=== PATIENT | female | born 1945 | race Caucasian/White ===

== ENCOUNTER 2018-04-08 12:17 | Inpatient (IN) | payer OTHER ==
[~2018-04-08] VITALS: Ht 154.9 cm; Wt 104.3 kg
[~2018-04-08 12:17] MED LIST: ADVAIR 500-501 EACH INH; AMARYL1 MG PO; ANTIVERT25 MG PO; CARVEDILOL12.5 MG; COMBIVENT RESPIM4 GM INH; COUMADIN 2 MG TA2 M1 PO; COUMADIN 3 MG TA3 M1 PO; FLONASE 0.05%50 MCG NASAL; FLOVENT HFA10.6 GM IH; IBUPROFEN 200200 M1 PO; LASIX 40 MG TAB40 M2 PO; LISINOPRIL20 MG PO; PACERONE 200 M200 M1 PO; PLAVIX 75 MG TA75 M1 PO; PRAVACHOL 20 MG20 M1 PO; PROAIR HFA8.5 GM INH; TOPROL XL25 MG PO
[2018-04-08 12:22] VITALS: BP 150/74
[2018-04-08 13:03] LABS: ABSOLUTE NEUTROPHILS 8.3 thou/uL (1.4-8.2); BASOPHILS 1.1 % (0.0-2.0); EOSINOPHILS 0.8 % (0.0-3.0); HEMATOCRIT 46.6 % (37.0-47.0); HEMOGLOBIN 15.6 gm/dL (12.0-15.0); LYMPHOCYTES 16.2 % (24.0-44.0); MCH 29.9 pg (26.0-34.0); MCHC 33.5 g/dL (28.0-37.0); MCV 89.3 fL (80.0-100.0); MONOCYTES 5.2 % (1.0-8.0); PLATELET COUNT 196 thou/uL (150-400); POLYS 76.7 % (36.0-66.0); RBC 5.22 mil/uL (4.20-5.00); RDW 14.5 % (10.5-14.5); WBC 10.8 thou/uL (4.0-11.0)
[2018-04-08 13:11] LABS: ANION GAP 8 mmol/L (7-16); BUN 18 mg/dL (7-18); CALCIUM 9.5 mg/dL (8.5-10.1); CHLORIDE 100 mmol/L (98-107); CO2 30 mmol/L (21-32); CREATININE 0.9 mg/dL (0.6-1.0); GLUCOSE 310 mg/dL (74-106); POTASSIUM 4.1 mmol/L (3.5-5.1); SODIUM 138 mmol/L (136-145)
[2018-04-08 13:21] LABS: TROPONIN-I <0.06 ng/mL (<0.06)
[2018-04-08 14:42] VITALS: BP 132/84
--- NOTE | 2018-04-08 14:54 | NUR ---
ECHO AT BEDSIDE
[2018-04-08 15:00] VITALS: BP 132/84
[2018-04-08 15:48] VITALS: BP 130/82
--- NOTE | 2018-04-08 15:52 | 2DMMODE ---
[facility] [place] [address] 2 D/M-MODE ECHOCARDIOGRAM Name: SOLO SOLIS Room #: 354-P ADM IN ..#: [id number] Admission: 04/08/18 Attend Phys: Larisa Ma Discharge: Date of : 49 Date of Service: 04/08/18 1552 Report #: [id number] THIS REPORT FOR: //name// APPROVED REPORT Study performed: 04/08/2018 15:01:33 EXAM: Comprehensive 2D, Doppler, and color-flow Echocardiogram Patient Location: ER Status: routine BSA: 2.00 HR: 76 bpm BP: 132/84 mmHg Rhythm: Atrial Fibrillation Other Information Study Quality: Adequate Indications CHF, short of breath. Hx: CHF, Afib, COPD, HTN, DM. 2D Dimensions RVDd: 37.11 mm IVSd: 12.50 (7-11mm) LVOT Diam: 21.29 (18-24mm) LVDd: 45.93 mm PWd: 13.17 (7-11mm) Ascending Ao: 27.24 (22-36mm) LVDs: 28.56 (25-40mm) Aortic Root: 34.20 mm Volumes Left Atrial Volume (Systole) Single Plane 4CH: 74.94 mL Single Plane 2CH: 63.66 mL LA ESV Index: 36.00 mL/m2 Aortic Valve AoV Peak Job.: 3.66 m/s AO Peak Gr.: 54.02 mmHg LVOT Max P.55 mmHg AO Mean Gr.: 34.01 mmHg AO V2 Mean: 2.79 m/s LVOT Max V: 0.94 m/s AO V2 VTI: 87.44 cm CARLOS Vmax: 0.91 cm2 Mitral Valve MV Decel. Time: 217.67 ms [facility] [place] [address] 2 D/M-MODE ECHOCARDIOGRAM Name: IRMASOLO J Room #: 354-P [facility] [place] M.R.#: [id number] Admission: 04/08/18 Attend Phys: Larisa Ma Discharge: Date of : 49 Date of Service: 04/08/18 1552 Report #: [id number] E Max Job.: 1.67 m/s Pulmonary Valve PV Peak Job.: 1.30 m/s PV Peak Gr.: 6.76 mmHg Tricuspid Valve TR Peak Job.: 3.35 m/s RAP Estimate: 10.00 mmHg TR Peak Gr.: 45.06 mmHg PA Pressure: 55.00 mmHg Left Ventricle The left ventricle is normal size. There is normal LV segmental wall motion. Mild concentric left ventricular hypertrophy. Left ventricular systolic function is normal. LVEF is 60-65%. This study is not technically sufficient to allow evaluation of the LV diastolic function due to atrial fibrillation. Right Ventricle The right ventricle is normal size. The right ventricular systolic function is normal. Atria Left atrium is mildly dilated. Right atrium is mildly dilated. Aortic Valve Aortic valve is heavily calcified. Trace aortic regurgitation. There is severe valvular aortic stenosis. Calculated aortic valve area is 0.9 cm2 with maximum pressure gradient of 54 mmHg and mean pressure gradient of 34 mmHg. Mitral Valve Mitral valve leaflets are thickened. Moderate mitral annular calcification. Mild to moderate mitral regurgitation. No evidence of mitral valve stenosis. Tricuspid Valve The tricuspid valve is normal in structure. Moderate tricuspid regurgitation. Estimated PAP is 55-60mmHg. Pulmonic Valve The pulmonary valve is normal in structure. Trace pulmonic regurgitation. Great Vessels The aortic root is normal in size. The ascending aorta is normal in [address] [address] 2 D/M-MODE ECHOCARDIOGRAM Name: SOLO SOLIS Room #: 354-P [facility] [place] ..#: [id number] Admission: 04/08/18 Attend Phys: Larisa Ma Discharge: Date of : 49 Date of Service: 04/08/18 1552 Report #: [id number] size. IVC is normal in size and collapses <50% with inspiration. Pericardium There is no pericardial effusion. <Conclusion> The left ventricle is normal size. LVEF is 60-65%. Left atrium is mildly dilated. Right atrium is mildly dilated. Aortic valve is heavily calcified. Trace aortic regurgitation. There is severe valvular aortic stenosis. Calculated aortic valve area is 0.9 cm2 with maximum pressure gradient of 54 mmHg and mean pressure gradient of 34 mmHg. Mitral valve leaflets are thickened. Moderate mitral annular calcification. Mild to moderate mitral regurgitation. The tricuspid valve is normal in structure. Moderate tricuspid regurgitation. Estimated PAP is 55-60mmHg. The pulmonary valve is normal in structure. Trace pulmonic regurgitation. There is no pericardial effusion. <ELECTRONICALLY SIGNED> By: Emigdio Rosas MD 04/08/18 [phone] Emigdio Rosas MD /INF
[2018-04-08] MEDS ORDERED: LISINOPRIL40 MG PO (16:13)
[2018-04-08] MEDS ORDERED: TOPROL XL25 MG PO (16:15)
[2018-04-08] MEDS ORDERED: REQUIP1 MG PO (16:17)
[2018-04-08] MEDS ORDERED: CARDIZEM CD240 MG PO (16:18)
--- NOTE | 2018-04-08 17:51 | NUR ---
ASSUMED PATIENT CARE FROM ED. A&OX4. NO COMPLAINTS OF PAIN. DURING ADMIT PATIENT STATED THAT THEY HAVE NEVER BEEN DIAGNOSED WITH CHF OR COPD. PATIENT ON MULTIPLE HEART MEDICATIONS AND ON INHALERS AT HOME. PATIENT DOES NOT SEE A FRONT OFFICE SPEC. PRIMARY CARE IS IN [facility] AND SIGNAL TESTER IS DR. HOLDER. THIS NURSE WENT OVER HOME MEDICATIONS WITH PATIENT AND NOTIFIED HOSPITALIST THAT SOME MEDICATIONS WERE DIFFERENT THAN THE MEDS STARTED. PATIENT IS UP ADLIB IN ROOM AND IS ON RA. DR. ESPARZA TO START BREATHING TREATMENTS AND ANTIBIOTICS.
[2018-04-08 19:36] VITALS: BP 145/63
[2018-04-08] MEDS ORDERED: LIPITOR 20 MG T20 M1 PO (20:39)
[2018-04-08] MEDS ORDERED: KLOR-CON 1010 MEQ PO (20:40)
[2018-04-08] MEDS ORDERED: NOVOLOG100 UNIT/1 SUBQ (20:42)
[2018-04-09 01:09] LABS: GLYCOHEMOGLOBIN (HGB A1C) 9.5 % (4.8-5.6)
--- NOTE | 2018-04-09 02:36 | NUR ---
PATIENT IS PROGRESSING IN HER CARE PLAN. VITAL SIGNS STABLE WITH PATIENT HAVING NO COMPLAINTS OF PAIN OR NAUSEA. PATIENT ROUTINELY CHECKED FOR CHEST PAIN TO NO AVAIL. PATIENT IS ORIENTED AND ABLE TO CALL APPROPRIATELY FOR NEEDS AND PARTICIPATE IN CARE. NURSE HAS SPOKEN TO PATIENT ABOUT THE NEED TO QUIT SMOKING BUT PATIENT IS ADAMANT THAT SHE DOES NOT SMOKE. PATIENTS SON CAME TO NURSING STATION TO INFORM NURSE THAT PATIENT IS A PERSISTENT "HALF A PACK A DAY" SMOKER. PATIENT PUT ON 2 LITERS NASAL CANNULA OVERNIGHT DUE TO OXYGEN SATS IN LOW 90'S. NURSE COMPLETED MED REC AND INITIATED PATIENTS HOME DRUGS WITH HELP OF MANAGER AREA AND PHARMACIST. UP AD KASIE INCIDENT FREE, PATIENT IS STRONG AND APPEARS BALANCED WITH STUDY GAIT. CONTINUE PLAN OF CARE.
[2018-04-09 04:18] VITALS: BP 131/68
[2018-04-09 05:01] LABS: ALBUMIN 3.4 g/dL (3.4-5.0); ANION GAP 11 mmol/L (7-16); BUN 23 mg/dL (7-18); CALCIUM 9.2 mg/dL (8.5-10.1); CHLORIDE 98 mmol/L (98-107); CO2 27 mmol/L (21-32); GLUCOSE 399 mg/dL (74-106); PHOSPHORUS 3.9 mg/dL (2.5-4.9); POTASSIUM 4.3 mmol/L (3.5-5.1); SODIUM 136 mmol/L (136-145); TROPONIN-I <0.06 ng/mL (<0.06)
[2018-04-09 07:32] VITALS: BP 128/65
--- NOTE | 2018-04-09 10:06 | NUR ---
ASSESSMENT: CM REVIEWED CHART AND MET WITH PATIENT AT THE BEDSIDE. PT IS ALERT AND ORIENTED X4. PT WAS ADMITTED WITH COPD EXACERBATION. PT REPORTS SHE LIVES IN A HOUSE WITH HER . PT REPORTS HAVING A RAMP INTO THE HOME AND HAS NO STEPS SHE USES ONCE INSIDE. PT STATES SHE NORMALLY AMBULATES INDEPENDENTLY FOR SHORT DISTANCES BUT IF SHE GOES OUTSIDE THE HOME SHE TAKES HER ELECTRIC SCOOTER WITH HER FOR LONG DISTANCES. PT REPORTS THAT SHE HAS A GRAB BAR IN THE SHOWER AND A BUILT IN BENCH. PT IS INDEPENDENT WITH ADLS. PT DENIES HAVING HH IN THE PAST OR BEING TO A SNF/REHAB. CM DISCUSSED ROLE. PT DOES NOT ANTICIPATE HAVING ANY NEEDS PRIOR TO DISCHARGE. CM WILL CONTINUE TO FOLLOW TO ASSIST NEEDED.
--- NOTE | 2018-04-09 15:11 | EKG ---
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 : 1945 Requested By: Dhiraj Mendiola Order Number: [id number] MD: Vic Chong Measurements Intervals [place] Rate: 91 P: MS: QRS: 6 QRSD: 95 T: 82 QT: 383 QTc: 472 Interpretive Statements Atrial fibrillation Anterior infarct, old Nonspecific T abnormalities, lateral leads Compared to ECG 11/13/2013 09:17:10 Myocardial infarct finding now present T-wave abnormality now present Poor R-wave progression no longer present Electronically Signed On 04-09-2018 15:10:50 ALLOY WEIGHER by Vic Chong [email or web address] <ELECTRONICALLY SIGNED> By: Vic Chong MD 04/09/18 1510 1228 1228 Vic Chong MD /EPI
--- NOTE | 2018-04-09 15:14 | NUR ---
ASSUMED PATIENT CARE AT 0715. A&OX4, FORGETFUL. CARDIOVASCULAR NURSE DISCUSSED CHF WITH PATIENT AND SPOUSE. DR. HOLDER ROUNDED ON PATIENT IN THE MORNING. PATIENT WANTING TO DC HOME TOMORROW. PULMONARY CLEARED PATIENT FOR DC PLANNING. ON RA. UP ADLIB. ACCURATE I&O'S. WORKING TOWARD DC GOALS. MOST LIKELY DC TOMORROW.
[2018-04-09 16:18] VITALS: BP 128/52
[2018-04-09 20:00] VITALS: BP 117/58
[2018-04-10 04:00] VITALS: BP 114/74
--- NOTE | 2018-04-10 04:53 | NUR ---
PATIENT IS PROGRESSING SLOWLY IN HER CARE PLAN. VITAL SIGNS STABLE WITH PATIENT HAVING NO COMPLAINTS OF PAIN (CHEST OTHERWISE) OR NAUSEA. PATIENT FULLY ORIENTED AND ABLE TO CALL APPROPRIATELY FOR NEEDS. OXYGEN SATURATION WAS NOTED IN LOW 90'S EARLY IN SHIFT AND PATIENT PLACED ON ONE UNIT NASAL CANNULA. PATIENT EDUCATED ON DANGERS OF SMOKING AND HER DIAGNOSIS OF COPD. UP AD KASIE THROUGHOUT SHIFT INCIDENT FREE PATIENT IS STABLE AND BALANCED WHEN AMBULATING. BLOOD SUGAR BETTER MANAGED THAN PREVIOUS SHIFT LAST NIGHT. PATIENT IS ANXIOUS FOR DISCHARGE TODAY. CONTINUE PLAN OF CARE.
[2018-04-10 08:00] VITALS: BP 139/87
[2018-04-10] MEDS ORDERED: DOXYCYCLINE 10100 MG PO (09:22)
[2018-04-10] MEDS ORDERED: XARELTO20 MG PO (09:23)
[2018-04-10] MEDS ORDERED: PREDNISONE 20 M20 M1 PO (09:24)
[2018-04-10 10:13] VITALS: BP 139/87
--- NOTE | 2018-04-10 11:07 | NUR ---
ASSUMED PATIENT CARE AT 0700. A/O X4. SOB WITH EXERTION. PATIENT ON RA O2 SAT 91-93%. SLOWLY TOWARDS POC GOALS. DC TO HOME NOW.
--- NOTE | 2018-04-10 13:54 | HC ---
[facility] [place] [address] CONSULTATION Name: SOLO SOLIS Room #: 354-P [facility] IN ..#: [id number] Admission: 04/08/18 Attend Phys: Larisa Leger Discharge: 04/10/18 Date of : 49 Report #: [id number] THIS REPORT FOR: //name// CC: Quinten Bonilla Larisa Leger DATE OF SERVICE: 04/08/2018 PULMONARY CONSULTATION REFERRING PHYSICIAN: Larisa Leger M.D. REASON FOR REFERRAL: COPD, dyspnea. HISTORY OF PRESENT ILLNESS: The patient is a 73-year-old white female who presented to the Emergency Room with dyspnea. A Pulmonary consultation was requested. The patient has smoked most of her life. She has a history of COPD. She states that she was in her usual state of health until that morning prior to presentation, when she started to experience fatigue, increasing dyspnea. She also noted left-sided arm pain. She has been sick about a month ago. She was felt to have flu-like symptoms. She was given prednisone and Levaquin at that time. Currently, she feels better. Dyspnea has improved. She denies any chest pain, productive cough or hemoptysis. PAST MEDICAL HISTORY: Notable for COPD, tobacco abuse, smoking less than half a pack a day over the last 56 years, atrial fibrillation, carotid artery disease, coronary artery disease, hypertension, chronic low back pain, osteoarthritis and peripheral artery disease. PAST SURGICAL HISTORY: Notable for cholecystectomy and prior lower extremity surgery. ALLERGIES: None to medications. HOME MEDICATIONS: Include Proventil HFA, Lipitor, Cardizem, Lasix, Lantus, Prinivil, Toprol-XL, Xarelto and Requip. FAMILY HISTORY: Notable for heart disease in the mother, who also has cancer. Father also had heart disease with myocardial infarction. SOCIAL HISTORY: She is . Smokes about half a pack a day over the last [facility] [address] [place] [address] CONSULTATION Name: SOLO SOLIS Room #: 354-P [facility] IN [facility].#: [id number] Admission: 04/08/18 Attend Phys: Larisa Leger Discharge: 04/10/18 Date of : 49 Report #: [id number] 58 years. She denies any tobacco use. REVIEW OF SYSTEMS: As mentioned above; otherwise, 10-point system review is negative. PHYSICAL EXAMINATION: GENERAL: On examination, she is awake, alert, in no apparent distress. VITAL SIGNS: Temperature is 98 degrees Fahrenheit, pulse is 80, respiratory rate is 20, blood pressure 130/80 mmHg and saturation 92%. HEENT: Normocephalic, atraumatic. NECK: Supple, without lymphadenopathy or thyromegaly. CHEST: Breath sounds are clear bilaterally, without any rales or wheezes. CARDIOVASCULAR: Normal S1, S2. There is no murmur or gallop. There is no JVD. There is no carotid bruit. Pulses are 2+/4+ bilaterally. ABDOMEN: Moderately obese. No organomegaly or masses felt. GENITOURINARY: Deferred. RECTAL: Deferred. EXTREMITIES: There is no edema, cyanosis or clubbing. LABORATORY DATA: Chest x-ray shows mild vascular congestion. No obvious infiltrates. Influenza A and B is negative. Echocardiogram shows pulmonary pressure measuring 55 mmHg, moderate mitral regurgitation and severe aortic stenosis. Troponin is normal. Electrolytes are normal. WBC is 10,800, hemoglobin 15.6 and platelets are normal. Albumin 3.4. IMPRESSION: 1. Dyspnea in this 73-year-old white female is probably due to chronic obstructive pulmonary disease and atrial fibrillation. 2. Chronic obstructive pulmonary disease, severity unknown, ongoing tobacco use, probable mild exacerbation. 3. Obesity. The patient has risk factors for sleep disordered breathing. Recommend sleep apnea evaluation. 4. Atrial fibrillation with rapid ventricular response, on chronic anticoagulation. 5. Hypertension. 6. Severe aortic stenosis with moderate mitral regurgitation. 7. Pulmonary hypertension due to valvular heart disease. RECOMMENDATIONS: We would initiate bronchodilators, corticosteroids and broad-spectrum antibiotics. I strongly recommended smoke cessation. DVT and GI prophylaxis will be addressed. As an outpatient, we would recommend outpatient followup for possible sleep disordered breathing along with COPD. I also strongly [place] [address] CONSULTATION Name: SOLO SOLIS Room #: 354-P DIS IN M.R.#: [id number] Admission: 04/08/18 Attend Phys: Larisa Leger Discharge: 04/10/18 Date of : 49 Report #: [id number] Thank you for this consultation. <ELECTRONICALLY SIGNED> By: Edenilson Kelly MD 04/10/18 1354 1528 1239 Edenilson Kelly MD /nt
== END 2018-04-10 11:09 | disposition home or self-care (01) | DRG 291 ==
LOC: ER 12:17 → EROBS 14:34 → 3W 14:34
PROVIDERS: Physician Assistant; ADMIT Hospitalist
DX: I11.0 Hypertensive heart disease with heart failure (principal); J96.01 Acute respiratory failure with hypoxia; J44.1 Chronic obstructive pulmonary disease with (acute) exacerbation; I38 Endocarditis, valve unspecified; Z68.41 Body mass index [BMI] 40.0-44.9, adult; I50.33 Acute on chronic diastolic (congestive) heart failure; E66.9 Obesity, unspecified; E78.5 Hyperlipidemia, unspecified; I25.10 Atherosclerotic heart disease of native coronary artery without angina pectoris; G89.29 Other chronic pain; M54.5 Low back pain; E11.51 Type 2 diabetes mellitus with diabetic peripheral angiopathy without gangrene; I35.0 Nonrheumatic aortic (valve) stenosis; I27.20 Pulmonary hypertension, unspecified; I34.0 Nonrheumatic mitral (valve) insufficiency; F17.210 Nicotine dependence, cigarettes, uncomplicated; I48.2 Chronic atrial fibrillation; E78.00 Pure hypercholesterolemia, unspecified; M19.90 Unspecified osteoarthritis, unspecified site; Z79.82 Long term (current) use of aspirin; Z90.49 Acquired absence of other specified parts of digestive tract; Z82.49 Family history of ischemic heart disease and other diseases of the circulatory system; Z79.899 Other long term (current) drug therapy
CPT/HCPCS: 10879

== ENCOUNTER → 2019-07-06 | Outpatient (CLI) | payer OTHER ==
[~2019-07-06] MED LIST changes: +CARDIZEM CD240 MG PO; +DOXYCYCLINE 10100 MG PO; +KLOR-CON 1010 MEQ PO; +LIPITOR 20 MG T20 M1 PO; +LISINOPRIL40 MG PO; +NOVOLOG100 UNIT/1 SUBQ; +PREDNISONE 20 M20 M1 PO; +REQUIP1 MG PO; +XARELTO20 MG PO
== END ==
LOC: SJCVCIMAG 13:01
DX: I08.3 Combined rheumatic disorders of mitral, aortic and tricuspid valves (principal); I11.0 Hypertensive heart disease with heart failure; I50.42 Chronic combined systolic (congestive) and diastolic (congestive) heart failure; E78.00 Pure hypercholesterolemia, unspecified; R06.02 Shortness of breath; I73.9 Peripheral vascular disease, unspecified; E08.9 Diabetes mellitus due to underlying condition without complications; J44.9 Chronic obstructive pulmonary disease, unspecified; D68.59 Other primary thrombophilia

== ENCOUNTER 2019-08-02 06:34 | Inpatient (IN) | payer OTHER ==
[2019-08-02] VITALS (15 sets, daily range): BP systolic 101–135; BP diastolic 63–87
[~2019-08-02] VITALS: Ht 157.5 cm; Wt 114.8 kg
--- NOTE | ~2019-08-02 | H ---
[facility] [place] [address] HISTORY AND PHYSICAL Name: SOLO SOLIS Room #: 212-P [facility] Celestina Siegel#: [id number] Admission: 08/02/19 Attend Phys: Quinten Bonilla MD, Discharge: Date of : 49 Report #: [id number] THIS REPORT FOR: cc: NO FAMILY PHYSICIAN or PCP NO FAMILY PHYSICIAN or PCP ~ CC: Quinten Bonilla NO PCP DATE OF SERVICE: 08/02/2019 HISTORY OF PRESENT ILLNESS: The patient is a 74-year-old female who was going to be electively looked at for coronary disease and her critical aortic valve stenosis. She has had some significant demise and progressive dyspnea, shortness of breath, now essentially not able to get around much except for a wheelchair. This has been relatively acute on subacute or at least a subacute demise. Taken to the catheterization lab after LISBETH to evaluate this valve for right and left heart catheterization. Significant volume overload here with a PA pressure of 70/30 and a wedge pressure of 30. She has been on p.o. Demadex with some marginal results prior to this. I have initiated IV Lasix. She has not had any syncope or presyncope, but a definite and marked change in exercise tolerance. Some orthopnea and PND are also noted. No chest pain. The cardiac catheterization revealed [id number] 3-vessel disease and a pullback across the valve, which was surprisingly crossed and a 40-45 mm range gradient across that valve. Dr. Minaya who did the LISBETH says significant calcification and a very tight aortic valve. MEDICATIONS: Her home medications are metoprolol 50; Xarelto, which has been held for 48 hours for the permanent AFib, torsemide 20, potassium 20 and Requip 1 mg 3 times a day. PAST MEDICAL HISTORY: Positive for coronary artery disease, aortic valve stenosis, permanent atrial fibrillation, hypercholesterolemia, some progressive dyspnea, shortness of breath, COPD, long history of tobacco use. SOCIAL HISTORY: She is , retired. They live in [place], [place]. She still smokes a pack a day. Moderate caffeine. No significant alcohol. ALLERGIES: No known drug allergies. FAMILY HISTORY: There is no history of premature coronary disease or valve disorder in her family. The mother did have a pacemaker and father had bypass surgery. REVIEW OF SYSTEMS: Negative except for stated above with progressive dyspnea, shortness of breath, multifactorial, but predominantly worsened due to this [facility] [address] [place] [address] HISTORY AND PHYSICAL Name: SOLO SOLIS Room #: 212-P [facility] Celestina Siegel#: [id number] Admission: 08/02/19 Attend Phys: Quinten Bonilla MD, Discharge: Date of : 49 Report #: [id number]. PHYSICAL EXAMINATION: VITAL SIGNS: Blood pressure is 132/74, pulse is 90s and irregularly irregular. GENERAL: She is mildly dyspneic and shortness of breath. HEENT: Eyes reveal xanthelasmas. Pharynx is clear. NECK: Slight diminished upstrokes are noted. There is a trace of JVD noted at 45 degrees. LUNGS: Clear with a few fine basilar crackles and prolonged expiratory phase. CARDIOVASCULAR: Distant heart tones, irregularly irregular, S1, diminished second heart sound harsh systolic ejection murmur, predominantly upper right sternal border radiating to the base of the neck. ABDOMEN: Obese, nontender. EXTREMITIES: Reveal trace to 1+ edema. Distal pulses were intact. NEUROLOGIC: Nonfocal. SKIN: Warm and dry, some mild venous stasis changes. MUSCULOSKELETAL: Generalized arthritic changes. ASSESSMENT: 1. Critical aortic valve stenosis with significant volume overload. 2. Exacerbation of heart failure with significant pulmonary pressure elevation secondary to aortic stenosis. 3. Permanent atrial fibrillation. 4. Hypertension. 5. Hypercholesterolemia. 6. Chronic obstructive pulmonary disease, continued tobacco abuse. RECOMMENDATIONS AND PLAN: We will admit for some aggressive diuresis here monitoring. She has had somewhat of demise here recently. We will have for Dr. Terrazas consult for possible surgical aortic valve replacement versus TAVR. Certainly not occur on this hospitalization, but would want to get her tuned up per se, get this fluid overload, get her significantly diuresed and clinically see how she responds. Although, definitely valve replacement is in her near future. This has been discussed with the patient and her . We will proceed to the CCU for admission and diuresis. PRIMARY CARE PROVIDER: Angelita Higgins, Primary Medicine, [place]. Thank you for asking me to assist in the care of this patient. By: [id number] /nt
[2019-08-02] MEDS ORDERED: DILTIAZEM 24HR300 M2 PO (07:20)
[2019-08-02] MEDS ORDERED: LANTUS SUBQ (07:21)
[2019-08-02] MEDS ORDERED: NOVOLOG100 UNIT/1 SUBQ (07:22)
[2019-08-02 07:23] LABS: HEMATOCRIT 44.5 % (37.0-47.0); HEMOGLOBIN 14.7 gm/dL (12.0-15.0); MCH 29.2 pg (26.0-34.0); MCHC 33.1 g/dL (28.0-37.0); MCV 88.2 fL (80.0-100.0); RBC 5.05 mil/uL (4.20-5.00); RDW 15.5 % (10.5-14.5); WBC 11.5 thou/uL (4.0-11.0)
[2019-08-02] MEDS ORDERED: SYMBICORT160 MCG/4. INH (07:23)
[2019-08-02] MEDS ORDERED: TOPROL XL50 MG PO (07:24)
[2019-08-02] MEDS ORDERED: KLOR-CON M2020 MEQ PO (07:25)
[2019-08-02] MEDS ORDERED: TORSEMIDE20 MG PO (07:26)
[2019-08-02] MEDS ORDERED: NITROSTAT0.4 M1 SUBLING (07:30)
[2019-08-02 07:31] LABS: CREATININE 0.9 mg/dL (0.6-1.0); POTASSIUM 3.8 mmol/L (3.5-5.1)
--- NOTE | 2019-08-02 08:39 | EKG ---
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: [facility] : 1945 Requested By: Quinten Bonilla Order Number: [id number] MD: Titi Minaya Measurements Intervals [place] Rate: 86 P: CA: QRS: -7 QRSD: 98 T: 58 QT: 369 QTc: 442 Interpretive Statements Atrial fibrillation Probable anteroseptal infarct, old Compared to ECG 04/08/2018 12:28:36 No significant change was found Electronically Signed On 08-02-2019 8:37:47 CDT by Titi Minaya [email or web address] <ELECTRONICALLY SIGNED> By: Titi Minaya MD, [facility] 08/02/19 0837 1 1 Titi Minaya MD, [facility] /EPI
--- NOTE | 2019-08-02 08:57 | TEE ---
[facility] [place] [address] TRANSESOPHAGEAL ECHOCARDIOGRAM Name: SOLO SOLIS Room #: REG SAYDA Siegel#: [id number] Admission: 08/02/19 Attend Phys: Quinten Bonilla MD, Discharge: Date of : 49 Report #: [id number] THIS REPORT FOR: cc: NO FAMILY PHYSICIAN or PCP NO FAMILY PHYSICIAN or PCP Titi Minaya MD [facility] ~ APPROVED REPORT Study performed: 08/02/2019 07:41:52 EXAM: Transesophageal Echocardiogram Patient Location: Out-Patient Room #: CVL Status: routine BSA: 2.02 HR: 88 bpm BP: 138/97 mmHg Rhythm: Atrial Fibrillation Other Information Study Quality: Adequate Indications Aortic Valve Disease Hx: Afib, COPD. Echo Enhancing Agent Indication: Rule out Shunt Agent(s) / Amount(s) Used: Agitated Saline 7 cc Procedure After obtaining informed consent, patient underwent transesophageal echo in the Extracting Machine Operator Holding. Type of Sedation : Conscious Sedation Sedation was achieved intravenously with: Versed (4) Fentanyl (100) Transesophageal probe was inserted and advanced into esophagus without difficulty by Titi Minaya MD. The LISBETH was performed without complications. Throughout the procedure, the blood pressure, pulse oximetry, cardiac rhythm, and rate were monitored. The patient tolerated the procedure without adverse effects. Recovery from conscious sedation was uneventful and vital signs were stable. [facility] [address] [place] [address] TRANSESOPHAGEAL ECHOCARDIOGRAM Name: SOLO SOLIS [facility] [id number] Admission: 08/02/19 Attend Phys: Quinten Bonilla, Discharge: Date of : 49 Report #: [id number] Left Ventricle The left ventricle is normal size. There is normal LV segmental wall motion. Mild concentric left ventricular hypertrophy. The left ventricular systolic function is normal. The left ventricular ejection fraction is within the normal range. LVEF is 55%. Right Ventricle The right ventricle is normal size. The right ventricular systolic function is normal. Atria Left atrium is severely dilated. No thrombus is visualized in the left atrium or appendage. No shunting noted by contrast bubble injection. Lipomatous hypertrophy of the atrial septum. Right atrium is severely dilated. Aortic Valve Aortic valve is heavily calcified, trileaflet. Trace aortic regurgitation. Severe aortic stenosis. Mitral Valve Moderate mitral annular calcification. Mild to moderate mitral regurgitation. Tricuspid Valve The tricuspid valve is normal in structure. Trace tricuspid regurgitation. Pulmonic Valve The pulmonary valve is normal in structure. There is no pulmonic valvular regurgitation. Great Vessels The aortic root is normal in size. Atherosclerotic plaque is present in the descending aorta. IVC is normal in size and collapses >50% with inspiration. Pericardium There is no pericardial effusion. <Conclusion> The left ventricular systolic function is normal. There is normal LV segmental wall motion. LVEF is 55%. Both atria are severely dilated. [facility] [address] [place] [address] TRANSESOPHAGEAL ECHOCARDIOGRAM Name: SOLO SOLIS [facility] [id number] Admission: 08/02/19 Attend Phys: Quinten Bonilla, Discharge: Date of : 49 Report #: [id number] No thrombus is visualized in the left atrium or appendage. No shunting noted by contrast bubble injection. Lipomatous hypertrophy of the atrial septum. Aortic valve is heavily calcified, trileaflet. Severe aortic stenosis, mild insufficiency. Moderate mitral annular calcification. Mild to moderate mitral regurgitation. There is no pericardial effusion. <ELECTRONICALLY SIGNED> By: Titi Minaya MD, FACC 08/02/19854 4 4 Titi Minaya MD, FACC /INF
[2019-08-02 13:15] LABS: ABSOLUTE NEUTROPHILS 7.1 thou/uL (1.4-8.2); BASOPHILS 1.2 % (0.0-2.0); EOSINOPHILS 3.4 % (0.0-3.0); HEMATOCRIT 44.8 % (37.0-47.0); HEMOGLOBIN 14.8 gm/dL (12.0-15.0); LYMPHOCYTES 20.1 % (24.0-44.0); MCH 29.5 pg (26.0-34.0); MCV 89.3 fL (80.0-100.0); MONOCYTES 7.5 % (1.0-8.0); PLATELET COUNT 218 thou/uL (150-400); POLYS 67.8 % (36.0-66.0); RBC 5.02 mil/uL (4.20-5.00); RDW 15.7 % (10.5-14.5); WBC 10.5 thou/uL (4.0-11.0)
[2019-08-02 13:35] LABS: APTT 29.2 Seconds (24.5-32.8); INR 1.1; PROTIME 10.9 Seconds (9.3-11.4)
--- NOTE | 2019-08-02 17:06 | NUR ---
PT. AND I HAD A LONG CONVERSATIN IN REGARDS TO PRE-TESTING THAT IS REQUIRED BEFORE HER SURGERY, MRSA, URINE, ETC. SHE IS "EXCITED"-TO GET TESTED SO SHE CAN HAVE SURGERY SOON AND FEEL BETTER. GROIN SITE CONTNUES TO SHOW NO OOZING, OR SIGN'S OF A HEMATOMA. DISTAL PULSES REMAIN INTACT. PT. DENIES CHEST PAIN AT THIS TIME. PLANS TO TAKE A NAP THIS AFTERNOON . URINARY CATHETER WAS REMOVED PRIOR WITH NO DISTRESS AND HAS VOIDED WITH NO COMPLAINTS POST REMOVAL. PT. DENIES ANY PAIN AT THS TIME. VS ARE STABLE AND CONTINUES TO BE IN AFIB, CONTROLLED RATE.
[2019-08-02 17:15] LABS: URINE BILIRUBIN NEGATIVE (Negative); URINE BLOOD 3+ (Negative); URINE CLARITY CLEAR; URINE COLOR YELLOW; URINE GLUCOSE-RANDOM* NEGATIVE (Negative); URINE KETONES NEGATIVE (Negative); URINE NITRITE-REFLEX NEGATIVE (Negative); URINE PROTEIN (DIPSTICK) NEGATIVE (Negative); URINE SPECIFIC GRAVITY 1.015 (1.005-1.035); URINE UROBILINOGEN 0.2 E.U./dl (0.2-1.0)
[2019-08-02 17:17] LABS: URINE LEUKOCYTES-REFLEX 1+ (Negative)
[2019-08-02 17:34] LABS: SQUAMOUS >10 Many /LPF (0-3)
--- NOTE | 2019-08-02 17:34 | CATHLAB ---
[facility] [place] [address] INVASIVE PROCEDURE REPORT Name: SOLO SOLIS Room #: 212-P [facility] Celestina Siegel#: [id number] Admission: 08/02/19 Attend Phys: Quinten Bonilla MD, Discharge: Date of : 49 Report #: [id number] THIS REPORT FOR: cc: NO FAMILY PHYSICIAN or PCP NO FAMILY PHYSICIAN or PCP Quinten Bonilla MD [facility] ~ APPROVED REPORT Study performed: 08/02/2019 07:44:38 Patient Details Patient Status: Out-Patient Room #: The patient is a 74 year-old female Event Personnel Quinten Bonilla Customer Response Representative, Dixie Hylton RN RN, Izzy aDmon RTR, KENYA Scrkecia, Tameka Colon Monitor Procedures Performed Art Access - R femoral artery* Alberto Access - R femoral vein Right and Left Heart Cath w/or w/o Coronarie [id number] [facility] Hemostasis w/ Mynx Indication Chest pain Procedure Narrative The Right Groin^ was infiltrated with subcutaneous anesthesia. A PINNACLE 6FR Sheath #[id number] sheath was inserted into the RFA 6F^. Coronary angiography was performed using coronary diagnostic catheters. The right coronary system was accessed and visualized with a JR4 catheter. The left coronary system was accessed and visualized with a JL4 catheter. The left ventricle was accessed and visualized with a STR PIG catheter. Left ventricular/Aortic Valve gradient assessed . Left ventriculogram was performed in 30 degree projection. The patient tolerated the procedure well and there were no complications associated with the procedure. There was no hematoma. Intraoperative Conscious Sedation Sedation start time: 834 Case end Time: 919 No sedation was given Fluoro Time: 3.33 minutes [facility] [address] [address] INVASIVE PROCEDURE REPORT Name: SOLO SOLIS Room #: 212-P [facility] IN [facility]#: [id number] Admission: 08/02/19 Attend Phys: Quinten Bonilla, Discharge: Date of : 49 Report #: [id number] Dose: DAP 5697.50 cGycm2 559 mGy Contrast Type and Amount: Omnipaque 100 ml Hemodynamics The right atrial mean pressure is 21 mmHg. The right ventricular pressure is 64/11 mmHg. The pulmonary artery pressure is 67/40 mmHg with a mean of 48 mmHg. The mean pulmonary capillary wedge pressure is 28 mmHg. The aortic pressure is 134/69 mmHg with a mean of 96 mmHg. The left ventricular pressure is 166/16 mmHg with a mean of mmHg. The cardiac output using thermo method is 3.95 L/min. The cardiac index using thermo method is 1.94 L/min/m2. 7 Fr sheath was put in RFV, pulled post procedure - held pressure for 8 minutes post pressure. No hematoma Conclusion 1. Successful right heart catheterization with significant elevation in pulmonary pressures and elevated pulmonary capillary wedge pressure. See above hemodynamics cardiac output by thermodilution. #2 normal left ventricular size and systolic function normal 55%. Pullback gradient across the aortic valve is approximately 45 to 50 mmHg. #3 abdominal aortogram intact with no aneurysm mild calcification plaquing noted. Brisk distal flow through the iliac system. #5 left main large free of disease giving rise to LAD and circumflex #6 the LAD is moderately diseased with calcification and plaquing 40 and 50% proximal irregularity and diffuse disease distally around the apex. 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 She is markedly more symptomatic think volume overload predominantly due to the aortic stenosis. IV Lasix has been given and Pedroza catheter. Will be admitted to the CCU for aggressive diuresis and CV surgical consult. Regarding surgical aortic valve replacement versus TAVR. LISBETH was performed prior to this cardiac [facility] [address] [address] INVASIVE PROCEDURE REPORT Name: SOLO SOLIS Room #: 212-P [facility] IN ..#: [id number] Admission: 08/02/19 Attend Phys: Quinten Bonilla, Discharge: Date of : 49 Report #: [id number] catheterization significant calcification and very limited motion of the aortic leaflets is noted per Dr. Minaya report. <ELECTRONICALLY SIGNED> By: Quinten Bonilla MD, FAC 08/02/191731 31 31 Quinten Bonilla MD, FACC /INF
[2019-08-02 17:35] LABS: CASTS None Seen /LPF (None Seen); CRYSTALS None Seen /LPF (None Seen); URINE WBC-REFLEX 6-15 Few /HPF (0-5)
[2019-08-02 17:36] LABS: BACTERIA-REFLEX 1-9 Few /HPF (None Seen)
[2019-08-03 00:21] VITALS: BP 97/39
[2019-08-03 04:07] LABS: GLYCOHEMOGLOBIN (HGB A1C) 8.5 % (4.8-5.6)
--- NOTE | 2019-08-03 05:20 | NUR ---
Pt. stated she slept intermittently during the night. Up ad wellington in room with steady gait. Reported shortness of breath with exertion. Tolerating room air well with O2 sat in the mid 90's. A fib with controlled rate. Right groin post cath site with dressing clean,dry and intact. Right groin soft with no hematoma. Voiding per toilet and diuresed well. Reminded of fluid restriction. Making progress towards care plan goals.
[2019-08-03 05:34] VITALS: BP 111/56
[2019-08-03 05:40] LABS: ALBUMIN 3.1 g/dL (3.4-5.0); CALCIUM 8.7 mg/dL (8.5-10.1); CREATININE 0.8 mg/dL (0.6-1.0); POTASSIUM 3.8 mmol/L (3.5-5.1); TOTAL BILIRUBIN 0.5 mg/dL (<0.1-1.0); TOTAL PROTEIN 6.6 g/dL (6.4-8.2)
[2019-08-03 07:40] VITALS: BP 115/76
[2019-08-03 11:30] VITALS: BP 109/50
--- NOTE | 2019-08-03 15:31 | NUR ---
ASSESSMENT CHARTED, PLEASANT, VSS AND DENIES ANY DISCOMFORT. RT GRION SITE DRESSING D/C/I. AFIB ON THE MONITOR, AND SHE STATED THAT HER ANKLES, AND LEGS LESS SWOLLEN. BG REMAINS ABOVE 200, AND COVERED PER ORDERS, AND WILL CONTINUE WITH POC.
[2019-08-03 16:30] VITALS: BP 115/65
[2019-08-03 19:07] VITALS: BP 83/66
--- NOTE | 2019-08-04 03:57 | NUR ---
Pt. stated she slept well during the night and she's ready to go home today. Tolerating room air well though she reported shortness of breath with exertion and sometimes even at rest. Cooperative with fluuid restriction. Voided per bathroom. Up ad wellington in room with steady gait. Making progress towards care plan goals.
[2019-08-04 04:23] VITALS: BP 84/22
[2019-08-04 05:16] VITALS: BP 125/59
--- NOTE | 2019-08-04 05:28 | NUR ---
[employer] checked BP on left arm while pt. lying on her right side and got 84/22 with MAP of 38. RN rechecked BP , requested pt. to lay on her back completely and got 125/59 with a MAP of 70. Pt. is asymptomatic and not in distress.
[2019-08-04 05:45] LABS: ALBUMIN 3.3 g/dL (3.4-5.0); CREATININE 0.9 mg/dL (0.6-1.0); POTASSIUM 4.3 mmol/L (3.5-5.1); TOTAL BILIRUBIN 0.9 mg/dL (<0.1-1.0); TOTAL PROTEIN 6.8 g/dL (6.4-8.2)
[2019-08-04] MEDS ORDERED: TORSEMIDE20 MG PO (07:09)
[2019-08-04 07:21] VITALS: BP 134/65
[2019-08-04 10:55] VITALS: BP 125/74
[2019-08-04 14:16] VITALS: BP 125/74
--- NOTE | 2019-08-04 15:12 | NUR ---
ASSESSMENT CHARTED. PT ALERT AND ORIENTED. VSS. DENIED HAVING PAIN OR DISCOMFORT. ORDERS GIVEN TO DISCHARGE PT TO HOME. DISCHARGE INSTRUCTIONS GIVEN TO PT. PT VERBERLISED UNDERSTANDING.
== END 2019-08-04 15:25 | disposition home or self-care (01) | DRG 286 ==
LOC: CATH 06:34 → 2N 10:06 → CATH 11:32 → 2N 08-03 11:39 → ENTRNSPT 08-04 15:09 → 2N 08-04 15:25
PROVIDERS: Nurse Practitioner Adult Health; Physician Assistant; ADMIT Internal Medicine Cardiovascular Disease
PROC: B2111ZZ Fluoroscopy of Multiple Coronary Arteries using Low Osmolar Contrast (ICD-10-PCS; principal; 2019-08-02)
PROC: B4101ZZ Fluoroscopy of Abdominal Aorta using Low Osmolar Contrast (ICD-10-PCS; principal; 2019-08-02)
PROC: B2151ZZ Fluoroscopy of Left Heart using Low Osmolar Contrast (ICD-10-PCS; principal; 2019-08-02)
PROC: 4A023N8 Measurement of Cardiac Sampling and Pressure, Bilateral, Percutaneous Approach (ICD-10-PCS; principal; 2019-08-02)
PROC: B24BZZ4 Ultrasonography of Heart with Aorta, Transesophageal (ICD-10-PCS; 2019-08-02)
DX: I25.10 Atherosclerotic heart disease of native coronary artery without angina pectoris (principal); I50.43 Acute on chronic combined systolic (congestive) and diastolic (congestive) heart failure; I48.21 Permanent atrial fibrillation; I35.0 Nonrheumatic aortic (valve) stenosis; I11.0 Hypertensive heart disease with heart failure; I65.29 Occlusion and stenosis of unspecified carotid artery; I34.0 Nonrheumatic mitral (valve) insufficiency; I70.8 Atherosclerosis of other arteries; E78.5 Hyperlipidemia, unspecified; E78.00 Pure hypercholesterolemia, unspecified; J44.9 Chronic obstructive pulmonary disease, unspecified; E11.51 Type 2 diabetes mellitus with diabetic peripheral angiopathy without gangrene; Z71.6 Tobacco abuse counseling; Z79.899 Other long term (current) drug therapy
CPT/HCPCS: 10081

== ENCOUNTER → 2019-10-25 | Outpatient (CLI) | payer OTHER ==
[~2019-10-25] MED LIST changes: +DILTIAZEM 24HR300 M2 PO; +KLOR-CON M2020 MEQ PO; +LANTUS SUBQ; +NITROSTAT0.4 M1 SUBLING; +SYMBICORT160 MCG/4. INH; +TOPROL XL50 MG PO; +TORSEMIDE20 MG PO
== END ==
LOC: SJCVC 13:30 → SJCVCIMAG 13:38 → SJCVC 13:38
PROVIDERS: ATTEND Internal Medicine Cardiovascular Disease
DX: I08.1 Rheumatic disorders of both mitral and tricuspid valves (principal); I25.10 Atherosclerotic heart disease of native coronary artery without angina pectoris; R94.31 Abnormal electrocardiogram [ECG] [EKG]; I73.9 Peripheral vascular disease, unspecified; J44.9 Chronic obstructive pulmonary disease, unspecified; I48.91 Unspecified atrial fibrillation; D68.59 Other primary thrombophilia; E08.9 Diabetes mellitus due to underlying condition without complications; F17.210 Nicotine dependence, cigarettes, uncomplicated; Z79.01 Long term (current) use of anticoagulants; Z79.899 Other long term (current) drug therapy

== ENCOUNTER → 2020-07-19 | Outpatient (CLI) | payer OTHER | LOC: SJCVC 13:21 | PROVIDERS: ATTEND Internal Medicine Cardiovascular Disease | DX: R94.31 Abnormal electrocardiogram [ECG] [EKG] (principal); I48.21 Permanent atrial fibrillation; I35.0 Nonrheumatic aortic (valve) stenosis; I10 Essential (primary) hypertension; I73.9 Peripheral vascular disease, unspecified; E78.00 Pure hypercholesterolemia, unspecified; J44.9 Chronic obstructive pulmonary disease, unspecified; F17.210 Nicotine dependence, cigarettes, uncomplicated; Z79.4 Long term (current) use of insulin; Z79.899 Other long term (current) drug therapy; Z95.2 Presence of prosthetic heart valve ==